=== PATIENT | male | born 1935 | race Caucasian/White ===

== ENCOUNTER → 2017-01-01 | Outpatient (CLI) | payer MEDICARE, OTHER | END | disposition home or self-care (01) | LOC: CFH 10:26 | PROVIDERS: ATTEND Internal Medicine | DX: R06.00 Dyspnea, unspecified (principal) | CPT/HCPCS: 71020 ==

== ENCOUNTER 2017-02-09 16:38 | Observation (INO) | payer MEDICARE, OTHER ==
[~2017-02-09] VITALS: Ht 182.9 cm; Wt 106.6 kg
[2017-02-09] MEDS ORDERED: SODIUM CHLORIDE FLUSH 10ML SYR IVF ONE (17:00)
[2017-02-09] MEDS ORDERED: ASPIRIN 81 MG TABLET CHEW PO ONE (17:00)
[2017-02-09] MEDS ORDERED: ASPIRIN 81 MG TABLET CHEW ONE (17:12)
[2017-02-09] MEDS ORDERED: NITROGLYCERIN SINGLE TAB 0.4 MG SL ONE (17:12)
[2017-02-09] MEDS: NITROGLYCERIN SINGLE TAB 0.4 MG SL PRN ×3 (17:30→18:00)
[2017-02-09 17:32] LABS: BLOOD UREA NITROGEN 21 mg/dL (7-18)
[2017-02-09 17:39] LABS: IS PT STATUS REG ER OR PRE ER? YES
[2017-02-09] MEDS ORDERED: ASPI-496 PO (19:29)
[2017-02-09] MEDS ORDERED: ALLO100T30 PO (19:29)
[2017-02-09] MEDS ORDERED: ENAL2.5T PO (19:29)
[2017-02-09] MEDS ORDERED: ATOR20TA9 PO (19:29)
[2017-02-09] MEDS ORDERED: SODIUM CHLORIDE FLUSH 10ML SYR IVF PRN (19:30)
[2017-02-09] MEDS ORDERED: ZOLPIDEM 5MG TABLET PO PRN (20:00)
[2017-02-09] MEDS ORDERED: ASPIRIN 325 MG TABLET EC PO ONE (20:00)
[2017-02-09] MEDS ORDERED: NITROGLYCERIN 0.4 MG/SPRAY SL PRN (20:00)
[2017-02-09] MEDS ORDERED: GUAIFENESIN/DM 200-20MG, 10ML UDC PO PRN (20:00)
[2017-02-09] MEDS ORDERED: ENOXAPARIN 40 MG/0.4 ML SQ SCH (20:00)
[2017-02-09] MEDS ORDERED: LABETALOL 5MG/ML, 20ML IVPush PRN (20:00)
[2017-02-09] MEDS ORDERED: ONDANSETRON ODT 4 MG PO PRN (20:00)
[2017-02-09] MEDS ORDERED: morphine SULFATE 10 MG/ML, 1ML IVPush PRN (20:00)
[2017-02-09 20:51] LABS: IS PT STATUS REG ER OR PRE ER? YES
[2017-02-09] MEDS ORDERED: ATORVASTATIN 20 MG TABLET PO SCH (21:00)
[2017-02-09] MEDS ORDERED: ENALAPRIL 2.5MG TABLET PO SCH (21:00)
[2017-02-09 21:10] VITALS: BP 146/82
[2017-02-09] MEDS: SODIUM CHLORIDE FLUSH 10ML SYR IVF SCH (23:07)
[2017-02-10 02:27] LABS: ASPARTATE AMINO TRANSFERASE 19 U/L (15-37); BLOOD UREA NITROGEN 22 mg/dL (7-18)
[2017-02-10 02:30] VITALS: BP 95/58
[2017-02-10 02:51] LABS: IS PT STATUS REG ER OR PRE ER? NO
[2017-02-10] MEDS ORDERED: ASPIRIN 325 MG TABLET EC PO SCH ×2 (06:00→21:00)
[2017-02-10 07:37] VITALS: BP 136/86
[2017-02-10] MEDS ORDERED: REGADENOSON 0.4 MG/5 ML SYRINGE ONE (08:44)
[2017-02-10] MEDS ORDERED: ENALAPRIL 20MG TABLET PO SCH (09:00)
[2017-02-10] MEDS ORDERED: ATORVASTATIN 20 MG TABLET PO SCH (09:00)
[2017-02-10] MEDS: SODIUM CHLORIDE FLUSH 10ML SYR IVF SCH (09:10)
[2017-02-10 13:25] VITALS: BP 151/94
[2017-02-10] MEDS ORDERED: ENALAPRIL 10 MG TABLET PO SCH (21:00)
[2017-02-11] MEDS ORDERED: ATORVASTATIN 10 MG TABLET PO SCH (09:00)
[2017-02-11] MEDS ORDERED: ASPIRIN 81 MG TABLET CHEW PO SCH (09:00)
== END 2017-02-10 14:37 | disposition home or self-care (01) ==
LOC: ED 19:19 → 5SO 21:05
PROVIDERS: ADMIT Internal Medicine; ATTEND Internal Medicine
DX: R06.02 Shortness of breath (principal); R07.89 Other chest pain; E78.00 Pure hypercholesterolemia, unspecified; I10 Essential (primary) hypertension; J45.909 Unspecified asthma, uncomplicated; M10.9 Gout, unspecified; Z79.82 Long term (current) use of aspirin; Z87.891 Personal history of nicotine dependence
CPT/HCPCS: 36415; 71010; 78452; 80048; 80053; 80061; 82040; 83880; 84484; 85025; 93005; 93017; 96372; 99285; A9502; C9898; G0378; J1650; J2785

== ENCOUNTER → 2017-03-01 | Outpatient (CLI) | payer MEDICARE, OTHER ==
[~2017-03-01] MED LIST: ALLO100T30 PO; ASPI-496 PO; ATOR20TA9 PO; ENAL2.5T PO
== END | disposition home or self-care (01) ==
LOC: CFH 16:07
PROVIDERS: ATTEND Internal Medicine Pulmonary Disease
DX: J43.8 Other emphysema (principal); J84.10 Pulmonary fibrosis, unspecified; R91.8 Other nonspecific abnormal finding of lung field; I77.810 Thoracic aortic ectasia; I51.7 Cardiomegaly; M47.894 Other spondylosis, thoracic region
CPT/HCPCS: 71250

== ENCOUNTER → 2017-05-12 | Outpatient (CLI) | payer MEDICARE, OTHER ==
[~2017-05-12] MED LIST changes: +OMNIPAQUE 350 MG/ML, 100ML BOTTLE ONE
== END | disposition home or self-care (01) ==
LOC: CFH 14:39
PROVIDERS: ATTEND Internal Medicine Cardiovascular Disease
DX: J84.10 Pulmonary fibrosis, unspecified (principal); R91.8 Other nonspecific abnormal finding of lung field
CPT/HCPCS: 71275; Q9967

== ENCOUNTER → 2017-08-17 | Outpatient (CLI) | payer MEDICARE, OTHER ==
[~2017-08-17] MED LIST changes: -OMNIPAQUE 350 MG/ML, 100ML BOTTLE ONE
== END | disposition home or self-care (01) ==
LOC: CLISVCS 11:17
PROVIDERS: ATTEND Internal Medicine
DX: R94.31 Abnormal electrocardiogram [ECG] [EKG] (principal); I49.9 Cardiac arrhythmia, unspecified
CPT/HCPCS: 93005

== ENCOUNTER → 2017-09-16 | Day surgery (SDC) | payer MEDICARE, OTHER ==
[~2017-09-16] VITALS: Ht 182.9 cm; Wt 104.5 kg
[~2017-09-16] MED LIST changes: +ALBU18HF INH; +ALLO300T PO; +APIX5TAB PO; +CARV6.2512 PO; +HYDR25TA6 PO; +PROPOFOL 10 MG/ML, 20ML ONE
[2017-09-16 09:31] VITALS: BP 133/89
[2017-09-16 10:04] LABS: ANION GAP 6 mmol/L (5-15); CALCIUM 8.7 mg/dL (8.5-10.1); CHLORIDE 105 mmol/L (98-107); CREATININE 1.03 mg/dL (0.7-1.3)
== END ==
LOC: CACL 09:04
PROVIDERS: ATTEND Internal Medicine Cardiovascular Disease
DX: I48.91 Unspecified atrial fibrillation (principal); I10 Essential (primary) hypertension; E78.5 Hyperlipidemia, unspecified; I31.0 Chronic adhesive pericarditis; I25.10 Atherosclerotic heart disease of native coronary artery without angina pectoris; M10.9 Gout, unspecified; F17.210 Nicotine dependence, cigarettes, uncomplicated
CPT/HCPCS: 36415; 80048; 92960; J2704

== ENCOUNTER 2017-11-03 09:55 | Day surgery (SDC) | payer MEDICARE, OTHER ==
[~2017-11-03] VITALS: Ht 182.9 cm; Wt 104.5 kg
[~2017-11-03 09:55] MED LIST changes: -PROPOFOL 10 MG/ML, 20ML ONE
[2017-11-03 10:41] VITALS: BP 103/80
[2017-11-03 11:07] LABS: BASOPHILS # (AUTO) 0.02 x10^3/uL (0-0.1); BASOPHILS % (AUTO) 0 % (0-1); EOSINOPHILS # (AUTO) 0.31 x10^3/uL (0-0.4); EOSINOPHILS % (AUTO) 5 % (1-7); LYMPHOCYTES # (AUTO) 1.29 x10^3/uL (1-3.4); LYMPHOCYTES % (AUTO) 20 % (22-44); MD NO; MEAN CORPUSCULAR HEMOGLOBIN 30.5 pg (27.5-34.5); MEAN CORPUSCULAR HGB CONC 32.9 g/dL (33.2-36.2); MEAN CORPUSCULAR VOLUME 92.6 fL (81-97); MEAN PLATELET VOLUME 9.2 fL (7.4-10.4); MONOCYTES % (AUTO) 10 % (2-9); NEUTROPHILS % (AUTO) 65 % (42-75); PLATELET COUNT 140 x10^3/uL (130-400); RED BLOOD COUNT 4.22 x10^6/uL (4.38-5.82); RED CELL DISTRIBUTION WIDTH 15.1 % (9.4-14.8)
[2017-11-03 11:12] LABS: ANION GAP 8 mmol/L (5-15); CALCIUM 8.4 mg/dL (8.5-10.1); CHLORIDE 104 mmol/L (98-107); CREATININE 1.13 mg/dL (0.7-1.3)
[2017-11-03] MEDS ORDERED: PROPOFOL 10 MG/ML, 20ML ONE (15:22)
== END 2017-11-03 12:47 ==
LOC: CACL 09:55
PROVIDERS: ATTEND Internal Medicine Cardiovascular Disease
DX: I48.91 Unspecified atrial fibrillation (principal); I10 Essential (primary) hypertension; E78.4 Other hyperlipidemia; I25.10 Atherosclerotic heart disease of native coronary artery without angina pectoris; M10.9 Gout, unspecified; Z79.899 Other long term (current) drug therapy
CPT/HCPCS: 36415; 80048; 85025; 92960; J2704

== ENCOUNTER → 2018-06-29 | Outpatient (CLI) | payer MEDICARE, OTHER | END | disposition home or self-care (01) | LOC: CFH 09:51 | PROVIDERS: ATTEND Internal Medicine | DX: J84.10 Pulmonary fibrosis, unspecified (principal); J96.11 Chronic respiratory failure with hypoxia | CPT/HCPCS: 71250 ==

== ENCOUNTER 2018-12-16 05:55 | Day surgery (SDC) | payer MEDICARE ==
[~2018-12-16] VITALS: Ht 182.9 cm; Wt 106.8 kg
[~2018-12-16 05:55] MED LIST changes: +ATOR20TA37 PO; -ATOR20TA9 PO
[2018-12-16 06:13] VITALS: BP 129/76
[2018-12-16] MEDS ORDERED: BUDE10.22 INH (06:27)
[2018-12-16] MEDS ORDERED: ALPR0.254 PO (06:30)
[2018-12-16] MEDS ORDERED: SAW500CA PO (06:30)
[2018-12-16] MEDS ORDERED: CHOL100011 PO (06:30)
[2018-12-16] MEDS ORDERED: [UNRECOGNIZED DRUG - OTHER] PO (06:30)
[2018-12-16] MEDS ORDERED: GARL10002 PO (06:30)
[2018-12-16 07:14] LABS: ANION GAP 6 mmol/L (5-15); CALCIUM 8.5 mg/dL (8.5-10.1); CHLORIDE 109 mmol/L (98-107); CREATININE 1.14 mg/dL (0.7-1.3)
[2018-12-16] MEDS ORDERED: PROPOFOL 10 MG/ML, 20ML ONE (07:28)
== END 2018-12-16 09:04 | disposition home or self-care (01) ==
LOC: CACL 05:55
PROVIDERS: ATTEND Internal Medicine Cardiovascular Disease
DX: I48.91 Unspecified atrial fibrillation (principal); I10 Essential (primary) hypertension; I25.10 Atherosclerotic heart disease of native coronary artery without angina pectoris; I34.0 Nonrheumatic mitral (valve) insufficiency; I48.0 Paroxysmal atrial fibrillation; E78.2 Mixed hyperlipidemia; I47.1 Supraventricular tachycardia
CPT/HCPCS: 36415; 80048; 92960; J2704

== ENCOUNTER → 2019-03-01 | Outpatient (CLI) | payer MEDICARE ==
[~2019-03-01] MED LIST changes: +ALPR0.254 PO; +BUDE10.22 INH; +CHOL100011 PO; +GARL10002 PO; +SAW500CA PO; +[UNRECOGNIZED DRUG - OTHER] PO
[2019-03-01 13:00] LABS: MEAN CORPUSCULAR HEMOGLOBIN 31.5 pg (27.5-34.5); MEAN CORPUSCULAR HGB CONC 33.1 g/dL (33.2-36.2); MEAN CORPUSCULAR VOLUME 95.2 fL (81-97); PLATELET COUNT 165 x10^3/uL (130-400); RED BLOOD COUNT 4.63 x10^6/uL (4.38-5.82); RED CELL DISTRIBUTION WIDTH 14.7 % (9.4-14.8)
== END | disposition home or self-care (01) ==
LOC: CFH 11:30
PROVIDERS: ATTEND Internal Medicine Cardiovascular Disease
DX: E78.2 Mixed hyperlipidemia (principal); I10 Essential (primary) hypertension; I25.10 Atherosclerotic heart disease of native coronary artery without angina pectoris; I34.0 Nonrheumatic mitral (valve) insufficiency; I47.1 Supraventricular tachycardia; I48.91 Unspecified atrial fibrillation; R06.02 Shortness of breath; R53.82 Chronic fatigue, unspecified; R07.89 Other chest pain
CPT/HCPCS: 36415; 71046; 83880; 85027

== ENCOUNTER 2019-03-23 20:21 | Emergency (ER) | payer MEDICARE ==
[~2019-03-23] VITALS: Ht 182.9 cm; Wt 111.0 kg
--- NOTE | 2019-03-23 20:55 | NUR ---
LATE ENTRY FOR 20:55. PT STATES NOSEBLEED ALL DAY, INTERMITTENT. PT DENIES DZY/SYNCOPE. STATES ON ELIQUIS. PT'S AOX4. RESPS EVEN AND UNLABORED. AWAITING ORDERES.
[2019-03-23] MEDS ORDERED: LIDOCAINE 1%-EPI 1:100K, 20ML ONE (21:08)
[2019-03-23] MEDS ORDERED: SILVER NITRATE STICK TP ONE ×2 (21:08→21:30)
[2019-03-23] MEDS ORDERED: OXYMETAZOLINE NASAL SPRAY 0.05%,30ML ONE ×2 (21:08→21:09)
[2019-03-23] MEDS ORDERED: LIDOCAINE 1%-EPI 1:100K, 50ML INFIL ONE (21:30)
[2019-03-23] MEDS ORDERED: OXYMETAZOLINE NASAL SPRAY 0.05%, 15ML NAS ONE (21:30)
[2019-03-23 21:41] LABS: BASOPHILS # (AUTO) 0.02 x10^3/uL (0-0.1); BASOPHILS % (AUTO) 0 % (0-1); EOSINOPHILS # (AUTO) 0.24 x10^3/uL (0-0.4); EOSINOPHILS % (AUTO) 4 % (1-7); LYMPHOCYTES # (AUTO) 1.59 x10^3/uL (1-3.4); LYMPHOCYTES % (AUTO) 24 % (22-44); MD NO; MEAN CORPUSCULAR HEMOGLOBIN 30.4 pg (27.5-34.5); MEAN CORPUSCULAR VOLUME 94.9 fL (81-97); MEAN PLATELET VOLUME 8.6 fL (7.4-10.4); MONOCYTES # (AUTO) 0.72 x10^3/uL (0.2-0.8); MONOCYTES % (AUTO) 11 % (2-9); NEUTROPHILS # (AUTO) 4.06 x10^3/uL (1.8-6.8); NEUTROPHILS % (AUTO) 61 % (42-75); PLATELET COUNT 153 x10^3/uL (130-400); RED BLOOD COUNT 4.21 x10^6/uL (4.38-5.82); RED CELL DISTRIBUTION WIDTH 14.9 % (9.4-14.8)
[2019-03-23 21:54] LABS: ALBUMIN 3.5 g/dL (3.4-5.0); ANION GAP 6 mmol/L (5-15); CALCIUM 8.9 mg/dL (8.5-10.1); CHLORIDE 107 mmol/L (98-107); CREATININE 1.18 mg/dL (0.7-1.3)
--- NOTE | 2019-03-23 21:55 | NUR ---
REPORT GIVEN TO CHAN LEE.
[2019-03-23 21:58] LABS: TROPONIN I < 0.015 ng/mL (0.000-0.045)
--- NOTE | 2019-03-23 22:19 | NUR ---
PT RESTING IN BED, VSS, NO MORE BLEEDING
[2019-03-23 22:40] VITALS: BP 126/75
== END 2019-03-23 22:46 | disposition home or self-care (01) ==
LOC: ED 22:30
DX: R04.0 Epistaxis (principal); I48.91 Unspecified atrial fibrillation; I10 Essential (primary) hypertension; Z87.891 Personal history of nicotine dependence
CPT/HCPCS: 36415; 80048; 82040; 84484; 85025; 93005; 99284

== ENCOUNTER 2019-03-29 15:15 | Outpatient (CLI) | payer MEDICARE | END 2019-03-29 23:59 | disposition home or self-care (01) | LOC: LAB 15:15 | PROVIDERS: ATTEND Internal Medicine Cardiovascular Disease | DX: I48.91 Unspecified atrial fibrillation (principal) | CPT/HCPCS: 36415; 80048 ==

== ENCOUNTER 2019-03-30 06:45 | Outpatient (CLI) | payer MEDICARE | END 2019-03-30 23:59 | disposition home or self-care (01) | LOC: CVU 06:45 → CFH 23:59 | PROVIDERS: ATTEND Internal Medicine Cardiovascular Disease | DX: I08.8 Other rheumatic multiple valve diseases (principal); I31.3 Pericardial effusion (noninflammatory); I25.89 Other forms of chronic ischemic heart disease; I11.9 Hypertensive heart disease without heart failure; E78.5 Hyperlipidemia, unspecified; Z87.891 Personal history of nicotine dependence; J44.9 Chronic obstructive pulmonary disease, unspecified; I48.91 Unspecified atrial fibrillation; I25.10 Atherosclerotic heart disease of native coronary artery without angina pectoris | CPT/HCPCS: 78452; 93017; 93306; A9502; J2785 ==

== ENCOUNTER 2019-04-05 08:46 | Outpatient (CLI) | payer MEDICARE ==
[2019-04-05 09:05] LABS: BASOPHILS # (AUTO) 0.02 x10^3/uL (0-0.1); BASOPHILS % (AUTO) 0 % (0-1); EOSINOPHILS # (AUTO) 0.22 x10^3/uL (0-0.4); EOSINOPHILS % (AUTO) 4 % (1-7); LYMPHOCYTES # (AUTO) 1.46 x10^3/uL (1-3.4); LYMPHOCYTES % (AUTO) 27 % (22-44); MD NO; MEAN CORPUSCULAR HEMOGLOBIN 30.8 pg (27.5-34.5); MEAN CORPUSCULAR HGB CONC 32.5 g/dL (33.2-36.2); MEAN CORPUSCULAR VOLUME 94.7 fL (81-97); MEAN PLATELET VOLUME 8.1 fL (7.4-10.4); MONOCYTES # (AUTO) 0.64 x10^3/uL (0.2-0.8); MONOCYTES % (AUTO) 12 % (2-9); NEUTROPHILS # (AUTO) 3.08 x10^3/uL (1.8-6.8); NEUTROPHILS % (AUTO) 57 % (42-75); PLATELET COUNT 169 x10^3/uL (130-400); RED BLOOD COUNT 4.17 x10^6/uL (4.38-5.82); RED CELL DISTRIBUTION WIDTH 15.2 % (9.4-14.8)
[2019-04-05 09:14] LABS: INTERNATIONAL NORMALIZED RATIO 1.11 (0.93-1.1); PROTHROMBIN TIME 11.6 Seconds (9.6-11.5)
[2019-04-05 09:16] LABS: ANION GAP 6 mmol/L (5-15); CALCIUM 9.2 mg/dL (8.5-10.1); CHLORIDE 108 mmol/L (98-107)
[2019-04-21] MEDS ORDERED: SOTA120T7 PO (10:19)
[2019-06-02] MEDS ORDERED: SOTA160T7 PO (12:54)
[2019-06-02] MEDS ORDERED: DIGO125T PO (12:54)
[2019-06-02] MEDS ORDERED: ALPR0.5T6 PO (13:04)
== END 2019-04-05 23:59 | disposition home or self-care (01) ==
LOC: RAD 08:46
PROVIDERS: ATTEND Internal Medicine Cardiovascular Disease
DX: I48.91 Unspecified atrial fibrillation (principal); E78.2 Mixed hyperlipidemia; I10 Essential (primary) hypertension; R06.02 Shortness of breath; R07.89 Other chest pain; R53.82 Chronic fatigue, unspecified
CPT/HCPCS: 36415; 71046; 80048; 85025; 85610; 85730

== ENCOUNTER 2019-04-07 08:13 | Day surgery (SDC) | payer MEDICARE ==
[~2019-04-07] VITALS: Ht 182.9 cm; Wt 104.5 kg
[2019-04-07] MEDS ORDERED: SODIUM CHLORIDE 0.9% 1,000 ML IV SCH ×3 (08:46→10:41)
[2019-04-07] MEDS ORDERED: FURO20TA3 PO (09:13)
[2019-04-07 09:15] VITALS: BP 125/85
[2019-04-07] MEDS ORDERED: VERAPAMIL 2.5 MG/ML, 2ML ONE (10:00)
[2019-04-07] MEDS ORDERED: FENTANYL PF 100 MCG/2ML ONE (10:00)
[2019-04-07] MEDS ORDERED: BIVALIRUDIN 250 MG ONE (10:00)
[2019-04-07] MEDS ORDERED: TICAGRELOR 90 MG TABLET ONE (10:00)
[2019-04-07] MEDS ORDERED: MIDAZOLAM 1 MG/ML, 5ML ONE (10:00)
[2019-04-07] MEDS ORDERED: HEPARIN 1,000 UNITS/ML, 10ML ONE (10:01)
[2019-04-07] MEDS ORDERED: NITROGLYCERIN 5 MG/ML, 10ML ONE (10:01)
[2019-04-07] MEDS ORDERED: LIDOCAINE-MPF 1%, 5ML ONE (10:01)
[2019-04-21] MEDS ORDERED: SOTA120T7 PO (10:19)
[2019-06-02] MEDS ORDERED: DIGO125T PO (12:54)
[2019-06-02] MEDS ORDERED: SOTA160T7 PO (12:54)
[2019-06-02] MEDS ORDERED: ALPR0.5T6 PO (13:04)
== END 2019-04-07 12:27 | disposition home or self-care (01) ==
LOC: CACL 08:13
PROVIDERS: ATTEND Internal Medicine Cardiovascular Disease
DX: I25.10 Atherosclerotic heart disease of native coronary artery without angina pectoris (principal); I25.83 Coronary atherosclerosis due to lipid rich plaque; I34.0 Nonrheumatic mitral (valve) insufficiency; I48.0 Paroxysmal atrial fibrillation; I47.1 Supraventricular tachycardia; I10 Essential (primary) hypertension; E78.2 Mixed hyperlipidemia; Z72.89 Other problems related to lifestyle; Z79.01 Long term (current) use of anticoagulants; Z79.899 Other long term (current) drug therapy
CPT/HCPCS: 93458; 99156; C1769; C1894; J1644; J2250; J3010; Q9967; J0583

== ENCOUNTER 2019-04-17 09:00 | Inpatient (IN) | payer MEDICARE ==
[~2019-04-17] VITALS: Ht 182.9 cm; Wt 56.0 kg
[2019-04-21 07:45] VITALS: BP 117/79
== END 2019-04-21 11:15 | disposition home or self-care (01) | DRG 243 ==
LOC: 5SO 09:12 → DCLOUNGE 04-21 11:00
PROVIDERS: ADMIT Internal Medicine Cardiovascular Disease; ATTEND Internal Medicine Cardiovascular Disease
PROC: 0JH606Z Insertion of Pacemaker, Dual Chamber into Chest Subcutaneous Tissue and Fascia, Open Approach (ICD-10-PCS; principal; 2019-04-17)
PROC: 02HK3JZ Insertion of Pacemaker Lead into Right Ventricle, Percutaneous Approach (ICD-10-PCS; 2019-04-17)
PROC: 02H63JZ Insertion of Pacemaker Lead into Right Atrium, Percutaneous Approach (ICD-10-PCS; 2019-04-17)
PROC: 5A2204Z Restoration of Cardiac Rhythm, Single (ICD-10-PCS; 2019-04-20)
DX: I49.5 Sick sinus syndrome (principal); D68.69 Other thrombophilia; I47.1 Supraventricular tachycardia; I48.91 Unspecified atrial fibrillation; D64.9 Anemia, unspecified; I11.9 Hypertensive heart disease without heart failure; I25.10 Atherosclerotic heart disease of native coronary artery without angina pectoris; I48.0 Paroxysmal atrial fibrillation; J45.909 Unspecified asthma, uncomplicated; N40.0 Benign prostatic hyperplasia without lower urinary tract symptoms; E78.2 Mixed hyperlipidemia; I34.0 Nonrheumatic mitral (valve) insufficiency; R53.82 Chronic fatigue, unspecified; Z87.891 Personal history of nicotine dependence
CPT/HCPCS: 33208; 36415; 71045; 80048; 80061; 84439; 84443; 84484; 85014; 85018; 92960; 93005; 99156; 99157; C1779; C1785; C1892; G0378; J0690; J2250; J2704; J3010

== ENCOUNTER → 2019-08-17 | Outpatient (CLI) | payer MEDICARE ==
[~2019-08-17] MED LIST changes: +ALPR0.5T6 PO; +DIGO125T PO; +FURO20TA3 PO; +SOTA120T7 PO; +SOTA160T7 PO
== END | disposition home or self-care (01) ==
LOC: CVU 12:15
PROVIDERS: ATTEND Internal Medicine Cardiovascular Disease
DX: I08.8 Other rheumatic multiple valve diseases (principal); I10 Essential (primary) hypertension; I48.91 Unspecified atrial fibrillation; E78.5 Hyperlipidemia, unspecified; Z95.0 Presence of cardiac pacemaker
CPT/HCPCS: 93306

== ENCOUNTER 2020-09-07 20:16 | Emergency (ER) | payer MEDICARE ==
[~2020-09-07] VITALS: Ht 188 cm; Wt 100.0 kg
[~2020-09-07 20:16] MED LIST changes: -DIGO125T PO; +DIGO125T85 PO; -ENAL2.5T PO; +ENAL2.5T8 PO
--- NOTE | 2020-09-07 20:22 | NUR ---
pt bib [facility] to room 8 with nosebleed. per [facility]sa pt had used 10 tampons to stop the bleeding and soaked them before they arrived, and they used another 5. MD at bedside and meds ordered from pharmacy, not available in [email or web address].
[2020-09-07] MEDS ORDERED: OXYMETAZOLINE NASAL SPRAY 0.05%, 15ML NAS ONE (20:30)
[2020-09-07] MEDS ORDERED: PLEASE ENTER HEIGHT AND WEIGHT MC SCH (20:30)
[2020-09-07] MEDS ORDERED: LIDOCAINE 1%-EPI 1:100K, 20ML INFIL ONE (20:30)
[2020-09-07 21:39] VITALS: BP 122/77
--- NOTE | 2020-09-07 22:08 | NUR ---
pt awake and alert, no distress. no active bleeding at this time from nose. f/u and d/c instructions given to pt and he v/u. ambulatory, and d/c'd without incident.
== END 2020-09-07 22:38 | disposition home or self-care (01) ==
LOC: ED 22:25
DX: R04.0 Epistaxis (principal); I10 Essential (primary) hypertension; I48.91 Unspecified atrial fibrillation; K21.9 Gastro-esophageal reflux disease without esophagitis; Z87.891 Personal history of nicotine dependence
CPT/HCPCS: 99283

== ENCOUNTER 2020-12-19 09:59 | Outpatient (CLI) | payer MEDICARE ==
[~2020-12-19 09:59] MED LIST changes: -ALPR0.5T6 PO; +ALPR0.5T93 PO
== END 2020-12-19 23:59 | disposition home or self-care (01) ==
LOC: CFH 09:59
PROVIDERS: ATTEND Internal Medicine Cardiovascular Disease
DX: I08.8 Other rheumatic multiple valve diseases (principal); I25.10 Atherosclerotic heart disease of native coronary artery without angina pectoris
CPT/HCPCS: 93306